=== PATIENT | male | born 1965 | race African-American/Black ===

== ENCOUNTER 2021-04-29 19:38 | Inpatient (IN) | payer BC ==
[2021-04-29 21:04] LABS: #Monocytes 0.4 10x3/uL (0.0-1.1); #Neutrophils 8.2 10x3/uL (1.5-8.4); %Basophils 0.1 % (0.0-2.0); %Eosinophils 0.3 % (0.0-6.0); %Lymphocytes 7.7 % (18.0-47.0); %Monocytes 4.3 % (0.0-10.0); %Neutrophils 87.2 % (40.0-75.0); Hemoglobin 5.6 g/dL (13.5-17.5); Mean Corpuscular HGB CONC 31.6 g/dL (32.0-36.0); Mean Corpuscular Hemoglobin 26.5 pg (27.0-33.0); Mean Corpuscular Volume 83.9 fl (81.2-95.1); Platelet Count 219 10x3/uL (150-450); RBC Distribution Width 16.8 % (11.5-14.5); Red Blood Cell (RBC) Count 2.11 10x6/uL (4.32-5.72); White Blood Cell (WBC) Count 9.4 10x3/uL (3.5-10.5)
[2021-04-29 21:06] LABS: ALT (SGPT) 18 U/L (8-55); AST (SGOT) 7 U/L (5-34); Albumin 3.8 g/dL (3.5-5.0); Alkaline Phosphatase 45 U/L (40-110); Anion Gap 37 mmol/L (10-20); Bilirubin, Total 0.5 mg/dL (0.2-1.2); CK (CPK) 565 U/L (30-200); Calcium 9.1 mg/dL (7.8-10.44); Carbon Dioxide 10 mmol/L (22-29); Chloride 106 mmol/L (98-107); Globulin 3.1 g/dL (2.4-3.5); Glucose 94 mg/dL (70-105); Lipase 209 U/L (8-78); Magnesium 2.9 mg/dL (1.6-2.6); Protein, Total 6.9 g/dL (6.0-8.3); Sodium 143 mmol/L (136-145)
[2021-04-29 21:08] LABS: Potassium 9.5 mmol/L (3.5-5.1)
[2021-04-29 21:15] LABS: BUN (Urea Nitrogen) 225 mg/dL (8.4-25.7)
[2021-04-29 21:19] LABS: Calc. Creatinine Clearance 0 mL/min (70-130)
[2021-04-29 21:30] LABS: CKMB 20.1 ng/mL (0-6.6)
[2021-04-29] MEDS ORDERED: Sodium Bicarb 50 MEQ/50 ML VIAL ONE ×3 (21:30→21:31)
[2021-04-29] MEDS ORDERED: Dextrose 50% Abboject 50 ML SYRINGE ONE (21:31)
[2021-04-29] MEDS ORDERED: Insulin Regular 300 UNITS/3 ML VIAL ONE (21:32)
[2021-04-29] MEDS ORDERED: Calcium Chloride 1 GM/10 ML Abboject SYRINGE ONE (21:34)
[2021-04-29] MEDS ORDERED: Sodium Bicarb 50 MEQ/50 ML VIAL IVP SCH (21:45)
[2021-04-29] MEDS ORDERED: Albuterol Sulfate 2.5 mg/0.5 ml Neb ONE (22:32)
[2021-04-29 22:38] LABS: SARS-CoV-2 NAA Rapid Test Not Detected (NotDetected)
[2021-04-29] MEDS ORDERED: Guaifenesin DM 100-10/5 ML UDCUP PO PRN (23:03)
[2021-04-29] MEDS ORDERED: Acetaminophen 325 MG TAB PO PRN (23:03)
[2021-04-29] MEDS ORDERED: HYDROcodone/Acetaminophen 5/325 mg Tablet PO PRN (23:03)
[2021-04-29] MEDS ORDERED: Calcium Carbonate 500 MG ChewTAB PO PRN (23:03)
[2021-04-29] MEDS ORDERED: Senokot S 8.6-50 MG TAB PO PRN (23:03)
[2021-04-29] MEDS ORDERED: Ondansetron PF 4 MG/2 ML Vial IVP PRN (23:03)
[2021-04-29] MEDS ORDERED: Zolpidem Tartrate 5 MG TAB PO PRN (23:03)
[2021-04-29] MEDS ORDERED: Sodium Chloride 0.45% 1,000 ML IV SCH (23:59)
[2021-04-30] MEDS ORDERED: FLU VACC QS2021-22(6MOS UP)/PF 60 MCG/0.5 ML SYRINGE IM ONE (00:45)
[2021-04-30] MEDS: Pantoprazole 40 MG VIAL IVP SCH ×2 (00:57→11:27)
[2021-04-30 02:02] LABS: HBSAg Index 0.19 S/CO (0-0.99); Hep B Surf Ag NonReactive S/CO (NonReactive)
[2021-04-30 03:50] LABS: #Monocytes 0.5 10x3/uL (0.0-1.1); #Neutrophils 7.5 10x3/uL (1.5-8.4); %Basophils 0.1 % (0.0-2.0); %Eosinophils 0.3 % (0.0-6.0); %Lymphocytes 6.1 % (18.0-47.0); %Monocytes 6.2 % (0.0-10.0); %Neutrophils 86.8 % (40.0-75.0); Actual Bicarbonate (HCO3v) 20 mEq/L (22-28); Base Excess -3.3 mEq/L (-2.0 to +3.0); Calcium, Ionized (venous) 1.05 mmol/L (1.16-1.32); Chloride (VBG) 102 mmol/L (98-106); Hemoglobin 7.7 g/dL (13.5-17.5); Hemoglobin (Hb) 8.6 g/dL (13.1-17.2); Mean Corpuscular HGB CONC 33.6 g/dL (32.0-36.0); Mean Corpuscular Volume 83.3 fl (81.2-95.1); Mean Platelet Volume 10.9 fl (7.4-10.4); Platelet Count 176 10x3/uL (150-450); Potassium (VBG) 4.69 mmol/L (3.70-5.30); Puncture Site Other Site; RBC Distribution Width 16.8 % (11.5-14.5); Red Blood Cell (RBC) Count 2.75 10x6/uL (4.32-5.72); Sodium 141.7 mmol/L (133-146); White Blood Cell (WBC) Count 8.7 10x3/uL (3.5-10.5); pH (venous) 7.47 (7.32-7.43)
[2021-04-30 04:10] LABS: ALT (SGPT) 16 U/L (8-55); AST (SGOT) 9 U/L (5-34); Albumin 3.5 g/dL (3.5-5.0); Alkaline Phosphatase 49 U/L (40-110); Anion Gap 28 mmol/L (10-20); BUN (Urea Nitrogen) Greater than 125 mg/dL (8.4-25.7); Bilirubin, Total 0.8 mg/dL (0.2-1.2); CK (CPK) 456 U/L (30-200); Calc. Creatinine Clearance 4 mL/min (70-130); Calcium 9.2 mg/dL (7.8-10.44); Carbon Dioxide 19 mmol/L (22-29); Chloride 104 mmol/L (98-107); Globulin 3.3 g/dL (2.4-3.5); Glucose 66 mg/dL (70-105); Iron 101 ug/dL (65-175); Iron Binding Capacity, Total 190 mcg/dL (261-462); Lipase 181 U/L (8-78); Potassium 4.8 mmol/L (3.5-5.1); Protein, Total 6.8 g/dL (6.0-8.3); Sodium 146 mmol/L (136-145)
[2021-04-30] MEDS ORDERED: Labetalol HCl 100 MG/20 ML VIAL SLOW IVP PRN (04:27)
[2021-04-30 04:35] LABS: CKMB 14.4 ng/mL (0-6.6)
[2021-04-30 07:28] LABS: Bilirubin Neg (Negative); Blood, Urine 25 (Negative); Clarity Clear (Clear); Glucose, Urine (Dipstick) Normal (Negative); Ketone, Urine Negative (Negative); Leukocyte 100 (Negative); Nitrite Negative (Negative); Protein, Urine (Dipstick) 30 mg/dl (Neg-Trace); Urobilinogen Normal mg/dL (Less than 2)
[2021-04-30 07:39] LABS: Squamous Epithelial 0-3 HPF (0-3)
[2021-04-30 07:40] LABS: Bacteria/HPF None Seen HPF (None Seen)
[2021-04-30] MEDS: Metoprolol Tartrate 25 MG TAB PO SCH ×2 (07:47→20:15)
[2021-04-30 08:30] LABS: CKMB 12.7 ng/mL (0-6.6); Critical Call CKMB RESULT DECREASING
[2021-04-30] MEDS ORDERED: Amlodipine 10 MG TAB PO SCH (09:30)
[2021-04-30] MEDS ORDERED: Tuberculin PPD 0.1 ML VIAL I-DERMAL SCH (13:00)
[2021-04-30 13:22] LABS: Hep C IgG Ab Non-Reactive (NonReactive)
[2021-04-30 13:23] LABS: HBSAB Concentration Less than 8.00 mIU/mL; Hep B Core Total Ab Non-Reactive (NonReactive); Hep B Core Total Index 0.08 S/CO (0-0.79); Hep B Surf AB Non-Reactive (NonReactive)
[2021-05-01] MEDS: Pantoprazole 40 MG VIAL IVP SCH ×3 (00:03→23:25)
[2021-05-01 03:54] LABS: #Eosinphils 0.1 10x3/uL (0.0-0.5); #Monocytes 0.6 10x3/uL (0.0-1.1); #Neutrophils 8.1 10x3/uL (1.5-8.4); %Basophils 0.1 % (0.0-2.0); %Eosinophils 0.6 % (0.0-6.0); %Lymphocytes 10.5 % (18.0-47.0); %Neutrophils 82.5 % (40.0-75.0); Hemoglobin 9.2 g/dL (13.5-17.5); Mean Corpuscular HGB CONC 33.3 g/dL (32.0-36.0); Mean Corpuscular Hemoglobin 28.2 pg (27.0-33.0); Mean Corpuscular Volume 84.7 fl (81.2-95.1); Mean Platelet Volume 11.4 fl (7.4-10.4); Platelet Count 226 10x3/uL (150-450); RBC Distribution Width 17.2 % (11.5-14.5); Red Blood Cell (RBC) Count 3.26 10x6/uL (4.32-5.72); White Blood Cell (WBC) Count 9.9 10x3/uL (3.5-10.5)
[2021-05-01 04:08] LABS: Anion Gap 22 mmol/L (10-20); BUN (Urea Nitrogen) 72 mg/dL (8.4-25.7); Calc. Creatinine Clearance 6 mL/min (70-130); Carbon Dioxide 22 mmol/L (22-29); Chloride 103 mmol/L (98-107); Glucose 88 mg/dL (70-105); Phosphorus 8.9 mg/dL (2.3-4.7); Sodium 142 mmol/L (136-145)
[2021-05-01] MEDS ORDERED: EPOETIN ALFA-EPBX (ESRD) 4,000 UNIT/ML VIAL SC SCH (08:00)
[2021-05-01] MEDS: Ferrous Sulfate 325 MG TAB PO SCH ×2 (08:03→17:52)
[2021-05-01] MEDS: Metoprolol Tartrate 25 MG TAB PO SCH ×2 (08:03→20:36)
[2021-05-01] MEDS: Amlodipine 10 MG TAB PO SCH (08:03)
[2021-05-01] MEDS: Sevelamer Carbonate 800 MG TAB PO SCH ×3 (08:20→17:52)
[2021-05-01] MEDS: EPOETIN ALFA-EPBX (ESRD) 10,000 UNIT/ML VIAL SC SCH (08:34)
[2021-05-01] MEDS: Calcitriol 0.25 MCG CAP PO SCH (08:35)
[2021-05-01] MEDS ORDERED: Heparin 10,000 UNITS/ 10 ML VIAL FS PRN (08:56)
[2021-05-01] MEDS: cefTRIAXone\\ROCEPHIN 1 GM in Sodium Chloride 0.9% 100 ML IVPB SCH (15:19)
[2021-05-02] MEDS ORDERED: Tuberculin PPD 0.1 ML VIAL I-DERMAL SCH ×2 (02:00→08:00)
[2021-05-02 04:22] LABS: #Eosinphils 0.1 10x3/uL (0.0-0.5); #Monocytes 0.9 10x3/uL (0.0-1.1); %Basophils 0.2 % (0.0-2.0); %Eosinophils 1.1 % (0.0-6.0); %Lymphocytes 17.1 % (18.0-47.0); %Monocytes 10.4 % (0.0-10.0); %Neutrophils 70.7 % (40.0-75.0); Hemoglobin 8.9 g/dL (13.5-17.5); Mean Corpuscular HGB CONC 33.1 g/dL (32.0-36.0); Mean Corpuscular Hemoglobin 28.4 pg (27.0-33.0); Mean Corpuscular Volume 85.9 fl (81.2-95.1); Mean Platelet Volume 10.4 fl (7.4-10.4); Platelet Count 173 10x3/uL (150-450); RBC Distribution Width 17.2 % (11.5-14.5); Red Blood Cell (RBC) Count 3.13 10x6/uL (4.32-5.72); White Blood Cell (WBC) Count 8.4 10x3/uL (3.5-10.5)
[2021-05-02 04:48] LABS: Anion Gap 13 mmol/L (10-20); BUN (Urea Nitrogen) 25 mg/dL (8.4-25.7); Calc. Creatinine Clearance 17 mL/min (70-130); Calcium 8.3 mg/dL (7.8-10.44); Carbon Dioxide 28 mmol/L (22-29); Chloride 101 mmol/L (98-107); Glucose 109 mg/dL (70-105); Potassium 3.9 mmol/L (3.5-5.1); Sodium 138 mmol/L (136-145)
[2021-05-02] MEDS ORDERED: READ PPD TEST SITE PO SCH (09:00)
[2021-05-02] MEDS: cefTRIAXone\\ROCEPHIN 1 GM in Sodium Chloride 0.9% 100 ML IVPB SCH (14:58)
[2021-05-02] MEDS: Amlodipine 10 MG TAB PO SCH (15:00)
[2021-05-02] MEDS: Metoprolol Tartrate 25 MG TAB PO SCH ×3 (15:00→20:56)
[2021-05-02] MEDS: Calcitriol 0.25 MCG CAP PO SCH (15:00)
[2021-05-02] MEDS: Pantoprazole 40 MG VIAL IVP SCH ×2 (15:01→23:01)
[2021-05-02] MEDS: Ferrous Sulfate 325 MG TAB PO SCH ×2 (18:05→18:07)
[2021-05-02] MEDS: Sevelamer Carbonate 800 MG TAB PO SCH ×2 (18:05→18:07)
[2021-05-03 04:44] LABS: #Eosinphils 0.2 10x3/uL (0.0-0.5); #Neutrophils 6.2 10x3/uL (1.5-8.4); %Basophils 0.2 % (0.0-2.0); %Eosinophils 2.3 % (0.0-6.0); %Lymphocytes 14.9 % (18.0-47.0); %Monocytes 11.1 % (0.0-10.0); %Neutrophils 70.8 % (40.0-75.0); Hemoglobin 8.1 g/dL (13.5-17.5); Mean Corpuscular HGB CONC 32.8 g/dL (32.0-36.0); Mean Corpuscular Hemoglobin 28.6 pg (27.0-33.0); Mean Corpuscular Volume 87.3 fl (81.2-95.1); Mean Platelet Volume 10.8 fl (7.4-10.4); Platelet Count 171 10x3/uL (150-450); RBC Distribution Width 17.2 % (11.5-14.5); Red Blood Cell (RBC) Count 2.83 10x6/uL (4.32-5.72); White Blood Cell (WBC) Count 8.8 10x3/uL (3.5-10.5)
[2021-05-03 04:49] LABS: Anion Gap 14 mmol/L (10-20); BUN (Urea Nitrogen) 15 mg/dL (8.4-25.7); Calc. Creatinine Clearance 26 mL/min (70-130); Calcium 7.7 mg/dL (7.8-10.44); Carbon Dioxide 26 mmol/L (22-29); Chloride 100 mmol/L (98-107); Glucose 113 mg/dL (70-105); Potassium 3.7 mmol/L (3.5-5.1); Sodium 136 mmol/L (136-145)
[2021-05-03] MEDS: Ferrous Sulfate 325 MG TAB PO SCH ×2 (08:28→17:32)
[2021-05-03] MEDS: Calcitriol 0.25 MCG CAP PO SCH (08:28)
[2021-05-03] MEDS: Pantoprazole 40 MG VIAL IVP SCH (08:28)
[2021-05-03] MEDS: Metoprolol Tartrate 25 MG TAB PO SCH (08:28)
[2021-05-03] MEDS: Amlodipine 10 MG TAB PO SCH (08:28)
[2021-05-03] MEDS: Sevelamer Carbonate 800 MG TAB PO SCH ×3 (08:30→17:31)
[2021-05-03] MEDS: Losartan 25 MG TAB PO SCH (09:02)
[2021-05-03] MEDS: cefTRIAXone\\ROCEPHIN 1 GM in Sodium Chloride 0.9% 100 ML IVPB SCH (13:45)
[2021-05-03] MEDS: Carvedilol 6.25 MG TAB PO SCH (17:32)
[2021-05-04] MEDS: Pantoprazole 40 MG VIAL IVP SCH ×2 (00:23→11:55)
[2021-05-04 04:22] LABS: Anion Gap 15 mmol/L (10-20); BUN (Urea Nitrogen) 29 mg/dL (8.4-25.7); Calc. Creatinine Clearance 20 mL/min (70-130); Calcium 7.6 mg/dL (7.8-10.44); Carbon Dioxide 23 mmol/L (22-29); Chloride 103 mmol/L (98-107); Glucose 113 mg/dL (70-105); Potassium 3.6 mmol/L (3.5-5.1); Sodium 137 mmol/L (136-145)
[2021-05-04 04:28] LABS: #Eosinphils 0.2 10x3/uL (0.0-0.5); #Monocytes 0.9 10x3/uL (0.0-1.1); #Neutrophils 6.4 10x3/uL (1.5-8.4); %Basophils 0.3 % (0.0-2.0); %Eosinophils 2.4 % (0.0-6.0); %Lymphocytes 15.6 % (18.0-47.0); %Monocytes 10.3 % (0.0-10.0); %Neutrophils 70.7 % (40.0-75.0); Hemoglobin 7.9 g/dL (13.5-17.5); Mean Corpuscular HGB CONC 32.6 g/dL (32.0-36.0); Mean Corpuscular Hemoglobin 28.8 pg (27.0-33.0); Mean Corpuscular Volume 88.3 fl (81.2-95.1); Mean Platelet Volume 10.1 fl (7.4-10.4); Platelet Count 193 10x3/uL (150-450); RBC Distribution Width 17.3 % (11.5-14.5); Red Blood Cell (RBC) Count 2.74 10x6/uL (4.32-5.72); White Blood Cell (WBC) Count 9.1 10x3/uL (3.5-10.5)
[2021-05-04] MEDS: Sevelamer Carbonate 800 MG TAB PO SCH ×3 (08:35→17:18)
[2021-05-04] MEDS: Ferrous Sulfate 325 MG TAB PO SCH ×2 (08:36→17:19)
[2021-05-04] MEDS: Calcitriol 0.25 MCG CAP PO SCH (08:36)
[2021-05-04] MEDS: Losartan 25 MG TAB PO SCH (08:36)
[2021-05-04] MEDS: Carvedilol 6.25 MG TAB PO SCH ×2 (08:36→17:19)
[2021-05-04] MEDS ORDERED: READ PPD TEST SITE PO SCH (09:00)
[2021-05-04] MEDS: cefTRIAXone\\ROCEPHIN 1 GM in Sodium Chloride 0.9% 100 ML IVPB SCH (11:55)
[2021-05-04] MEDS ORDERED: Ivabradine 5 MG TAB PO SCH (12:15)
[2021-05-04 14:09] LABS: Reference Lab Name LABCORP
[2021-05-04 14:10] LABS: Ref Lab Test Ordered Coxsackie B Titer
[2021-05-04 15:04] LABS: ANA Symphony (Qualitative) Negative (Negative); ANA Symphony (Quantitative) 0.4 Ratio (< 0.7 Negative); dsDNA IgG Antibody 1.3 IU/mL (<10 Negative)
[2021-05-04] MEDS ORDERED: GoLYTELY 4,000 ml Bottle PO SCH (17:00)
[2021-05-04] MEDS: Ivabradine 5 MG TAB PO SCH (20:20)
[2021-05-05] MEDS: Pantoprazole 40 MG VIAL IVP SCH ×2 (00:30→13:56)
[2021-05-05 05:29] LABS: #Eosinphils 0.2 10x3/uL (0.0-0.5); #Neutrophils 5.4 10x3/uL (1.5-8.4); %Basophils 0.2 % (0.0-2.0); %Eosinophils 2.5 % (0.0-6.0); %Lymphocytes 19.5 % (18.0-47.0); %Monocytes 12.1 % (0.0-10.0); Hemoglobin 7.3 g/dL (13.5-17.5); Mean Corpuscular HGB CONC 31.6 g/dL (32.0-36.0); Mean Corpuscular Hemoglobin 28.3 pg (27.0-33.0); Mean Corpuscular Volume 89.5 fl (81.2-95.1); Mean Platelet Volume 10.1 fl (7.4-10.4); Platelet Count 229 10x3/uL (150-450); RBC Distribution Width 17.7 % (11.5-14.5); Red Blood Cell (RBC) Count 2.58 10x6/uL (4.32-5.72); White Blood Cell (WBC) Count 8.3 10x3/uL (3.5-10.5)
[2021-05-05 05:38] LABS: Anion Gap 12 mmol/L (10-20); BUN (Urea Nitrogen) 36 mg/dL (8.4-25.7); Calc. Creatinine Clearance 20 mL/min (70-130); Calcium 7.7 mg/dL (7.8-10.44); Carbon Dioxide 25 mmol/L (22-29); Chloride 105 mmol/L (98-107); Glucose 94 mg/dL (70-105); Potassium 3.9 mmol/L (3.5-5.1); Sodium 138 mmol/L (136-145)
[2021-05-05] MEDS: Sevelamer Carbonate 800 MG TAB PO SCH ×3 (08:57→16:56)
[2021-05-05] MEDS: Calcitriol 0.25 MCG CAP PO SCH (08:57)
[2021-05-05] MEDS: Ferrous Sulfate 325 MG TAB PO SCH ×2 (08:57→16:56)
[2021-05-05] MEDS: Carvedilol 6.25 MG TAB PO SCH ×2 (08:57→16:56)
[2021-05-05] MEDS: Ivabradine 5 MG TAB PO SCH (08:59)
[2021-05-05] MEDS: cefTRIAXone\\ROCEPHIN 1 GM in Sodium Chloride 0.9% 100 ML IVPB SCH (15:13)
[2021-05-05 15:15] LABS: Cytoplasmic (C-ANCA) <1:20 titer (Neg:<1:20); Myeloperoxidase AutoAbs <9.0 U/mL (0.0-9.0); Perinuclear (P-ANCA) <1:20 titer (Neg:<1:20); Proteinase-3 AutoAbs Less than 3.5 U/mL (0.0-3.5)
[2021-05-05 21:36] LABS: A/G Ratio 1.1 (0.7-1.7); Albumin 3.7 g/dL (2.9-4.4); Alpha 1 0.4 g/dL (0.0-0.4); Alpha 2 0.7 g/dL (0.4-1.0); Beta 0.8 g/dL (0.7-1.3); Gamma 1.4 g/dL (0.4-1.8); Globulin, Total 3.4 g/dL (2.2-3.9); M-Spike Not Observed g/dL (Not Observed)
[2021-05-05 22:12] LABS: Albumin-Ur 49.6 % (.); Alpha 1 - Ur 6.4 % (.); Alpha 2 - Ur 10.8 % (.); Beta-Ur 17.7 % (.); Gamma-Ur 15.3 % (.); M-Spike,% Not Observed % (Not Observed); Protein, Urine 1451.4 mg/dL (Not Estab.)
[2021-05-06] MEDS: Pantoprazole 40 MG VIAL IVP SCH ×3 (00:19→23:57)
[2021-05-06] MEDS: Ivabradine 5 MG TAB PO SCH ×4 (00:21→20:30)
[2021-05-06 02:37] LABS: % Free PSA 7.3 % (.)
[2021-05-06 04:32] LABS: #Eosinphils 0.2 10x3/uL (0.0-0.5); #Monocytes 1.3 10x3/uL (0.0-1.1); #Neutrophils 5.7 10x3/uL (1.5-8.4); %Basophils 0.3 % (0.0-2.0); %Lymphocytes 20.1 % (18.0-47.0); %Monocytes 14.6 % (0.0-10.0); %Neutrophils 62.3 % (40.0-75.0); Hemoglobin 6.8 g/dL (13.5-17.5); Mean Corpuscular HGB CONC 31.5 g/dL (32.0-36.0); Mean Corpuscular Hemoglobin 28.3 pg (27.0-33.0); Mean Platelet Volume 9.8 fl (7.4-10.4); Platelet Count 197 10x3/uL (150-450); RBC Distribution Width 18.1 % (11.5-14.5); White Blood Cell (WBC) Count 9.1 10x3/uL (3.5-10.5)
[2021-05-06 04:40] LABS: Anion Gap 10 mmol/L (10-20); BUN (Urea Nitrogen) 33 mg/dL (8.4-25.7); Calc. Creatinine Clearance 26 mL/min (70-130); Calcium 7.5 mg/dL (7.8-10.44); Carbon Dioxide 27 mmol/L (22-29); Chloride 105 mmol/L (98-107); Glucose 97 mg/dL (70-105); Potassium 3.8 mmol/L (3.5-5.1); Sodium 138 mmol/L (136-145)
[2021-05-06 07:34] LABS: Anion Gap 11 mmol/L (10-20); BUN (Urea Nitrogen) 35 mg/dL (8.4-25.7); Calc. Creatinine Clearance 25 mL/min (70-130); Calcium 7.8 mg/dL (7.8-10.44); Carbon Dioxide 27 mmol/L (22-29); Chloride 106 mmol/L (98-107); Glucose 95 mg/dL (70-105); Potassium 3.9 mmol/L (3.5-5.1); Sodium 140 mmol/L (136-145)
[2021-05-06] MEDS: Ferrous Sulfate 325 MG TAB PO SCH ×2 (08:49→17:43)
[2021-05-06] MEDS: Sevelamer Carbonate 800 MG TAB PO SCH ×3 (08:49→17:43)
[2021-05-06] MEDS: Carvedilol 6.25 MG TAB PO SCH (08:49)
[2021-05-06] MEDS: Calcitriol 0.25 MCG CAP PO SCH (08:49)
[2021-05-06] MEDS ORDERED: EPINEPHrine 1 MG/ML AMP ONE (11:15)
[2021-05-06] MEDS ORDERED: Bupivacaine 0.25% HCL 30 ML VIAL ONE (11:15)
[2021-05-06] MEDS ORDERED: PROPOFOL 20 ML ONE (11:27)
[2021-05-06] MEDS ORDERED: Fentanyl 100 MCG/2 ML VIAL ONE (11:27)
[2021-05-06] MEDS ORDERED: Lidocaine 1% PF 5 ML VIAL ONE (11:28)
[2021-05-06] MEDS ORDERED: Phenylephrine 40 MG/NS 250 ML 250 ML ONE (11:33)
[2021-05-06] MEDS ORDERED: ePHEDrine Sulfate 50 MG/10 ML VIAL ONE (11:49)
[2021-05-06] MEDS ORDERED: PHENYLEPHRINE-NS 100 MCG/ML 10 ML SYRINGE ONE (11:49)
[2021-05-06] MEDS ORDERED: Ondansetron PF 4 MG/2 ML Vial ONE (12:08)
[2021-05-06] MEDS ORDERED: SUGAMMADEX SODIUM 200 MG/2 ML VIAL ONE (14:04)
[2021-05-06] MEDS: cefTRIAXone\\ROCEPHIN 1 GM in Sodium Chloride 0.9% 100 ML IVPB SCH (15:14)
[2021-05-06] MEDS: Carvedilol 3.125 MG TAB PO SCH (17:43)
[2021-05-07 04:50] LABS: #Eosinphils 0.1 10x3/uL (0.0-0.5); #Monocytes 1.2 10x3/uL (0.0-1.1); %Basophils 0.3 % (0.0-2.0); %Eosinophils 1.5 % (0.0-6.0); %Lymphocytes 20.1 % (18.0-47.0); %Monocytes 13.2 % (0.0-10.0); %Neutrophils 64.3 % (40.0-75.0); Hemoglobin 7.9 g/dL (13.5-17.5); Mean Corpuscular Hemoglobin 28.9 pg (27.0-33.0); Mean Corpuscular Volume 90.5 fl (81.2-95.1); Mean Platelet Volume 9.5 fl (7.4-10.4); Platelet Count 215 10x3/uL (150-450); RBC Distribution Width 18.3 % (11.5-14.5); Red Blood Cell (RBC) Count 2.73 10x6/uL (4.32-5.72); White Blood Cell (WBC) Count 9.4 10x3/uL (3.5-10.5)
[2021-05-07 07:16] LABS: Anion Gap 11 mmol/L (10-20); BUN (Urea Nitrogen) 41 mg/dL (8.4-25.7); Calc. Creatinine Clearance 23 mL/min (70-130); Calcium 7.9 mg/dL (7.8-10.44); Carbon Dioxide 26 mmol/L (22-29); Chloride 107 mmol/L (98-107); Glucose 106 mg/dL (70-105); Sodium 140 mmol/L (136-145)
[2021-05-07] MEDS: Sevelamer Carbonate 800 MG TAB PO SCH ×3 (13:13→16:07)
[2021-05-07] MEDS: Pantoprazole 40 MG VIAL IVP SCH ×2 (13:24→23:58)
[2021-05-07] MEDS: cefTRIAXone\\ROCEPHIN 1 GM in Sodium Chloride 0.9% 100 ML IVPB SCH (13:25)
[2021-05-07] MEDS: Calcitriol 0.25 MCG CAP PO SCH (13:25)
[2021-05-07] MEDS: Carvedilol 3.125 MG TAB PO SCH ×2 (13:26→16:08)
[2021-05-07] MEDS: Ferrous Sulfate 325 MG TAB PO SCH ×2 (13:26→16:07)
[2021-05-07] MEDS: Ivabradine 5 MG TAB PO SCH ×2 (13:30→21:28)
[2021-05-08 04:17] LABS: #Eosinphils 0.1 10x3/uL (0.0-0.5); #Monocytes 1.1 10x3/uL (0.0-1.1); #Neutrophils 4.8 10x3/uL (1.5-8.4); %Basophils 0.5 % (0.0-2.0); %Eosinophils 1.6 % (0.0-6.0); %Lymphocytes 23.3 % (18.0-47.0); %Monocytes 14.1 % (0.0-10.0); %Neutrophils 59.6 % (40.0-75.0); Hemoglobin 8.1 g/dL (13.5-17.5); Mean Corpuscular HGB CONC 31.6 g/dL (32.0-36.0); Mean Corpuscular Hemoglobin 28.8 pg (27.0-33.0); Mean Corpuscular Volume 91.1 fl (81.2-95.1); Platelet Count 208 10x3/uL (150-450); RBC Distribution Width 18.1 % (11.5-14.5); Red Blood Cell (RBC) Count 2.81 10x6/uL (4.32-5.72)
[2021-05-08 04:27] VITALS: BMI 20.7
[2021-05-08 04:40] LABS: Anion Gap 11 mmol/L (10-20); BUN (Urea Nitrogen) 29 mg/dL (8.4-25.7); Calc. Creatinine Clearance 29 mL/min (70-130); Calcium 8.1 mg/dL (7.8-10.44); Carbon Dioxide 27 mmol/L (22-29); Chloride 103 mmol/L (98-107); Glucose 107 mg/dL (70-105); Sodium 137 mmol/L (136-145)
[2021-05-08] MEDS ORDERED: Communication Order-Pharmacy FS SCH (08:30)
[2021-05-08] MEDS: Sevelamer Carbonate 800 MG TAB PO SCH ×3 (09:53→17:20)
[2021-05-08] MEDS: Ivabradine 5 MG TAB PO SCH ×2 (09:54→21:36)
[2021-05-08] MEDS: Ferrous Sulfate 325 MG TAB PO SCH ×2 (09:54→17:20)
[2021-05-08] MEDS: Calcitriol 0.25 MCG CAP PO SCH (09:54)
[2021-05-08] MEDS: Carvedilol 3.125 MG TAB PO SCH ×2 (09:54→17:25)
[2021-05-08] MEDS: EPOETIN ALFA-EPBX (ESRD) 10,000 UNIT/ML VIAL SC SCH (12:34)
[2021-05-08] MEDS: Pantoprazole 40 MG VIAL IVP SCH (12:34)
[2021-05-08] MEDS: cefTRIAXone\\ROCEPHIN 1 GM in Sodium Chloride 0.9% 100 ML IVPB SCH (14:31)
[2021-05-09] MEDS: Pantoprazole 40 MG VIAL IVP SCH ×2 (00:10→13:29)
[2021-05-09 04:09] LABS: #Eosinphils 0.1 10x3/uL (0.0-0.5); #Monocytes 0.9 10x3/uL (0.0-1.1); %Basophils 0.4 % (0.0-2.0); %Eosinophils 1.8 % (0.0-6.0); %Lymphocytes 25.1 % (18.0-47.0); %Monocytes 12.6 % (0.0-10.0); %Neutrophils 59.4 % (40.0-75.0); Mean Corpuscular HGB CONC 31.4 g/dL (32.0-36.0); Mean Corpuscular Hemoglobin 28.7 pg (27.0-33.0); Mean Corpuscular Volume 91.4 fl (81.2-95.1); Mean Platelet Volume 9.2 fl (7.4-10.4); Platelet Count 207 10x3/uL (150-450); RBC Distribution Width 18.1 % (11.5-14.5); Red Blood Cell (RBC) Count 2.79 10x6/uL (4.32-5.72); White Blood Cell (WBC) Count 6.8 10x3/uL (3.5-10.5)
[2021-05-09 04:23] LABS: ALT (SGPT) 13 U/L (8-55); AST (SGOT) 13 U/L (5-34); Albumin 2.9 g/dL (3.5-5.0); Alkaline Phosphatase 52 U/L (40-110); Anion Gap 10 mmol/L (10-20); BUN (Urea Nitrogen) 45 mg/dL (8.4-25.7); Bilirubin, Total 0.1 mg/dL (0.2-1.2); Calc. Creatinine Clearance 22 mL/min (70-130); Calcium 8.4 mg/dL (7.8-10.44); Carbon Dioxide 27 mmol/L (22-29); Chloride 107 mmol/L (98-107); Glucose 96 mg/dL (70-105); Potassium 4.2 mmol/L (3.5-5.1); Protein, Total 5.9 g/dL (6.0-8.3); Sodium 140 mmol/L (136-145)
[2021-05-09 04:37] LABS: INR-International Normal Ratio 0.9; PTT 23.4 sec (22.0-33.0); Prothrombin Time 10.2 sec (9.5-12.1)
[2021-05-09] MEDS: Ivabradine 5 MG TAB PO SCH (05:44)
[2021-05-09] MEDS: Calcitriol 0.25 MCG CAP PO SCH (05:44)
[2021-05-09] MEDS: Ferrous Sulfate 325 MG TAB PO SCH ×2 (05:44→17:13)
[2021-05-09] MEDS: Carvedilol 3.125 MG TAB PO SCH ×2 (05:44→17:13)
[2021-05-09] MEDS ORDERED: Nitroglycerin 50 MG/250 ML BOT 250 ML ONE (06:52)
[2021-05-09] MEDS ORDERED: Heparin 10,000 UNITS/ 10 ML VIAL ONE (06:52)
[2021-05-09] MEDS ORDERED: Verapamil 5 MG/2 ML VIAL ONE (06:53)
[2021-05-09] MEDS ORDERED: Bivalirudin 250 MG VIAL ONE (06:53)
[2021-05-09] MEDS ORDERED: Adenosine 6 MG/2 ML VIAL ONE (06:53)
[2021-05-09] MEDS ORDERED: Lidocaine 1% PF 5 ML VIAL ONE (06:58)
[2021-05-09] MEDS ORDERED: Midazolam HCl 2 mg/2 ml Vial ONE (07:40)
[2021-05-09] MEDS ORDERED: Fentanyl 100 MCG/2 ML VIAL ONE (07:40)
[2021-05-09] MEDS ORDERED: Acetaminophen/Codeine 30-300mg Tablet PO PRN ×2 (08:03)
[2021-05-09] MEDS ORDERED: Nitroglycerin 0.4 MG TAB (25 Tab Bottle) SL PRN (08:03)
[2021-05-09] MEDS: Sevelamer Carbonate 800 MG TAB PO SCH ×3 (09:00→17:13)
[2021-05-09] MEDS ORDERED: Iopamidol 300 61% 100 ML VIAL FS ONE (09:17)
[2021-05-09] MEDS: cefTRIAXone\\ROCEPHIN 1 GM in Sodium Chloride 0.9% 100 ML IVPB SCH (13:29)
[2021-05-09 16:08] VITALS: BP 97/52; TEMP 97.5
== END 2021-05-09 19:55 | disposition home or self-care (01) | DRG 673 ==
LOC: CSHERS 19:38 → CSHICU 23:33 → CSHTELE 05-01 15:04
PROVIDERS: ADMIT Student in an Organized Health Care Education/Training Program; ATTEND Internal Medicine
PROC: 30233N1 Transfusion of Nonautologous Red Blood Cells into Peripheral Vein, Percutaneous Approach (ICD-10-PCS; 2021-04-29)
PROC: 0T9B70Z Drainage of Bladder with Drainage Device, Via Natural or Artificial Opening (ICD-10-PCS; 2021-04-30)
PROC: 0JH60XZ Insertion of Tunneled Vascular Access Device into Chest Subcutaneous Tissue and Fascia, Open Approach (ICD-10-PCS; principal; 2021-05-06)
PROC: 02HV33Z Insertion of Infusion Device into Superior Vena Cava, Percutaneous Approach (ICD-10-PCS; 2021-05-06)
PROC: B5181ZA Fluoroscopy of Superior Vena Cava using Low Osmolar Contrast, Guidance (ICD-10-PCS; 2021-05-06)
PROC: B548ZZA Ultrasonography of Superior Vena Cava, Guidance (ICD-10-PCS; 2021-05-06)
PROC: 5A1D70Z Performance of Urinary Filtration, Intermittent, Less than 6 Hours Per Day (ICD-10-PCS; 2021-05-06)
PROC: 4A023N7 Measurement of Cardiac Sampling and Pressure, Left Heart, Percutaneous Approach (ICD-10-PCS; 2021-05-09)
PROC: B2111ZZ Fluoroscopy of Multiple Coronary Arteries using Low Osmolar Contrast (ICD-10-PCS; 2021-05-09)
DX: N17.9 Acute kidney failure, unspecified (principal); I50.21 Acute systolic (congestive) heart failure; E87.2 Acidosis; K92.1 Melena; D62 Acute posthemorrhagic anemia; J90 Pleural effusion, not elsewhere classified; I5A Non-ischemic myocardial injury (non-traumatic); I13.0 Hypertensive heart and chronic kidney disease with heart failure and stage 1 through stage 4 chronic kidney disease, or unspecified chronic kidney disease; I42.9 Cardiomyopathy, unspecified; Z20.822 Contact with and (suspected) exposure to COVID-19; N18.6 End stage renal disease; E87.5 Hyperkalemia; D63.1 Anemia in chronic kidney disease; N13.6 Pyonephrosis; R13.10 Dysphagia, unspecified; N41.9 Inflammatory disease of prostate, unspecified; R00.0 Tachycardia, unspecified; N25.81 Secondary hyperparathyroidism of renal origin; E83.51 Hypocalcemia; Z80.42 Family history of malignant neoplasm of prostate
CPT/HCPCS: 36415; 36430; 36556; 71045; 71250; 74177; 76770; 80048; 80053; 81001; 82274; 82550; 82553; 82728; 82805; 83520; 83540; 83550; 83690; 83735; 83970; 84100; 84153; 84154; 84165; 84166; 84443; 84484; 85025; 85610; 85730; 86037; 86038; 86225; 86580; 86704; 86706; 86803; 86850; 86900; 86901; 87040; 87071; 87340; 90935; 93005; 93010; 93306; 93458; 94640; 94760; 96374; 96375; 97139; 99152; C1752; C9113; G0257; J0153; J0171; J0583; J0696; J1642; J1644; J1815; J2250; J2405; J2704; J3010; J3490; J7611; P9016; Q5105; Q9967; S0020; U0002

== ENCOUNTER 2021-10-11 11:12 | Emergency (ER) | payer BC ==
[2021-10-11 13:00] LABS: #Eosinphils 0.1 10x3/uL (0.0-0.5); #Monocytes 0.8 10x3/uL (0.0-1.1); #Neutrophils 3.7 10x3/uL (1.5-8.4); %Basophils 0.5 % (0.0-2.0); %Monocytes 12.2 % (0.0-10.0); %Neutrophils 58.1 % (40.0-75.0); Hemoglobin 8.9 g/dL (13.5-17.5); Mean Corpuscular HGB CONC 32.1 g/dL (32.0-36.0); Mean Corpuscular Hemoglobin 29.2 pg (27.0-33.0); Mean Corpuscular Volume 90.8 fl (81.2-95.1); Mean Platelet Volume 10.1 fl (7.4-10.4); Platelet Count 210 10x3/uL (150-450); RBC Distribution Width 16.4 % (11.5-14.5); Red Blood Cell (RBC) Count 3.05 10x6/uL (4.32-5.72); White Blood Cell (WBC) Count 6.4 10x3/uL (3.5-10.5)
== END 2021-10-11 13:18 | disposition home or self-care (01) ==
LOC: CSHERS 11:12
DX: N18.6 End stage renal disease (principal)
CPT/HCPCS: 85025; 99284

== ENCOUNTER 2024-12-09 15:12 | Emergency (ER) | payer BC ==
[2024-12-09 15:47] LABS: #Basophils 0.04 10x3/uL (0.0-0.2); #Eosinophils 0.06 10x3/uL (0.0-0.5); #Monocytes 0.39 10x3/uL (0.0-1.1); #Neutrophils 2.95 10x3/uL (1.5-8.4); %Basophils 0.7 % (0.0-2.0); %Eosinophils 1.0 % (0.0-6.0); %Lymphocytes 37.8 % (18.0-47.0); %Monocytes 6.8 % (0.0-10.0); %Neutrophils 51.4 % (40.0-75.0); Hematocrit 26.0 % (38.8-50.0); Hemoglobin 7.8 g/dL (13.5-17.5); Mean Corpuscular Hemoglobin 25.7 pg (27.0-33.0); Mean Corpuscular Volume 85.5 fL (81.2-95.1); Platelet Count 388 10x3/uL (150-450); Red Blood Cell (RBC) Count 3.04 10x6/uL (4.32-5.72); White Blood Cell (WBC) Count 5.74 10x3/uL (3.5-10.5)
[2024-12-09] MEDS ORDERED: diphenhydrAMINE 50 MG/ML VIAL ONE (15:48)
[2024-12-09] MEDS ORDERED: Prochlorperazine 10 MG/2 ML VIAL ONE (15:49)
[2024-12-09 16:01] LABS: Anion Gap 28 mmol/L (10-20); BUN (Urea Nitrogen) 59 mg/dL (8.4-25.7); Calc. Creatinine Clearance 0 mL/min (70-130); Calcium 8.3 mg/dL (7.8-10.44); Carbon Dioxide 24 mmol/L (22-29); Chloride 93 mmol/L (98-107); Glucose 132 mg/dL (70-105); Lipase 77 U/L (8-78); Potassium 5.8 mmol/L (3.5-5.1); Sodium 139 mmol/L (136-145)
[2024-12-09] MEDS ORDERED: Droperidol 5 MG/2 ML VIAL ONE (16:26)
[2024-12-09 19:09] LABS: Glucose, Urine (Dipstick) 100 mg/dL (Negative); Leukocyte Negative (Negative); Protein, Urine (Dipstick) > or equal to 300 mg/dL (Neg-Trace); Specific Gravity, Urine 1.020 (1.005-1.030)
[2024-12-09 19:23] LABS: Bacteria/HPF 4+ HPF (None Seen); CAUTI Indications for Culture Urological Procedure; Urine Culture Reflex Yes Yes; WBC/HPF 0-3 HPF (0-3)
== END 2024-12-09 19:56 | disposition short-term general hospital (02) ==
LOC: CSHERS 15:12
DX: K65.9 Peritonitis, unspecified (principal); I12.0 Hypertensive chronic kidney disease with stage 5 chronic kidney disease or end stage renal disease; N18.6 End stage renal disease; D64.9 Anemia, unspecified; K63.1 Perforation of intestine (nontraumatic); R33.9 Retention of urine, unspecified; D48.0 Neoplasm of uncertain behavior of bone and articular cartilage
CPT/HCPCS: 36415; 51702; 71250; 74177; 80048; 81001; 83690; 85025; 87086; 96372; 96374; 96375; J0780; J1200; J1790; J2543